=== PATIENT | female | born 1980 | race Caucasian/White ===

== ENCOUNTER 2016-11-03 09:40 | Emergency (ER) | payer OTHER ==
[~2016-11-03] VITALS: Ht 165.1 cm; Wt 77.1 kg
[2016-11-03 09:47] VITALS: BP 123/80
[2016-11-03] MEDS ORDERED: AMOXICILLIN500 M2 PO (09:48)
[2016-11-03] MEDS ORDERED: CLINDAMYCIN150 MG PO (09:54)
[2016-11-03] MEDS ORDERED: ZOFRAN4 MG PO (09:54)
[2016-11-03] MEDS ORDERED: DIFLUCAN150 MG PO (09:54)
== END 2016-11-03 10:01 | disposition home or self-care (01) ==
LOC: ED 09:40
DX: K04.7 Periapical abscess without sinus (principal); R03.0 Elevated blood-pressure reading, without diagnosis of hypertension